=== PATIENT | female | born 1955 | race Two or more races ===

== ENCOUNTER 2018-05-12 08:35 | Emergency (ER) | payer BC, OTHER ==
[~2018-05-12] VITALS: Ht 167.6 cm; Wt 77.1 kg
[2018-05-12 08:35] VITALS: BP_SYST 160
[2018-05-12] MEDS ORDERED: DIPH-TET-PERTUS Vaccine 0.5 ML VIAL (ADACEL) IM ONE (08:45)
[2018-05-12] MEDS ORDERED: BACITRACIN 1 GM OINT TP ONE (08:45)
[2018-05-12 09:58] VITALS: BP_SYST 136
== END 2018-05-12 09:58 | disposition home or self-care (01) ==
LOC: SED 08:35
DX: S61.431A Puncture wound without foreign body of right hand, initial encounter (principal); Z88.5 Allergy status to narcotic agent; W54.0XXA Bitten by dog, initial encounter; Y93.89 Activity, other specified; Y92.89 Other specified places as the place of occurrence of the external cause; Y99.8 Other external cause status
CPT/HCPCS: 90715; 99283

== ENCOUNTER 2022-11-03 23:52 | Emergency (ER) | payer OTHER ==
[~2022-11-03] VITALS: Ht 167.6 cm; Wt 74.8 kg
[2022-11-04 00:01] VITALS: BP_SYST 200
[2022-11-04] MEDS ORDERED: OXYMETAZOLINE HCL 0.05% NASAL SPRAY NS ONE (00:15)
[2022-11-04] MEDS ORDERED: LIDOCAINE VISCOUS 2%, 15 ML UDC MM ONE (00:15)
[2022-11-04] MEDS ORDERED: OXYM15MI9 NS (00:51)
[2022-11-04] MEDS ORDERED: 0.9126SP NS (00:52)
[2022-11-04 01:07] VITALS: BP_SYST 151
== END 2022-11-04 01:07 | disposition home or self-care (01) ==
LOC: SED 23:52
DX: R04.0 Epistaxis (principal); I10 Essential (primary) hypertension; Z88.5 Allergy status to narcotic agent; Z79.899 Other long term (current) drug therapy
CPT/HCPCS: 99282; J2001